=== PATIENT | male | born 1975 | race Caucasian/White ===

== ENCOUNTER 2018-01-11 12:48 | Emergency (ER) | payer OTHER, SELFPAY ==
[2018-01-11] MEDS ORDERED: Naproxen 500 MG TAB ONE (13:47)
[2018-01-11] MEDS ORDERED: Cyclobenzaprine 10 MG TAB ONE (13:47)
== END 2018-01-11 14:42 | disposition home or self-care (01) ==
LOC: MADERS 12:48
DX: M54.6 Pain in thoracic spine (principal); Z87.891 Personal history of nicotine dependence
CPT/HCPCS: 36416; 99283